=== PATIENT | male | born 1955 | race Caucasian/White ===

== ENCOUNTER 2016-12-08 09:15 | Day surgery (SDC) | payer OTHER ==
[~2016-12-08 09:15] MED LIST: ASPI-1159 PO; ATOR80TA PO; CANA300T PO; LIRA0.6P2 SUBCUT; LISI-604 PO; METF10002 PO; MUC103 MC; PIOG30TA10 PO
[2016-12-08] MEDS ORDERED: ASPIRIN/SOD BICARB/CITRIC ACID 324MG TAB EFF ONE (09:47)
[2016-12-08] MEDS ORDERED: CLOP75TA33 PO (09:55)
[2016-12-08] MEDS ORDERED: CHOL100046 PO (09:55)
[2016-12-08] MEDS ORDERED: MIDAZOLAM HCL 2 MG/2 ML VIAL ONE (10:54)
[2016-12-08] MEDS ORDERED: HEPARIN SODIUM 1,000 UNIT/1ML VIAL IV ONE (10:54)
[2016-12-08] MEDS ORDERED: IODIXANOL 320MG/ML 100 ML BOTTLE IV ONE (10:55)
[2016-12-08] MEDS ORDERED: LIDOCAINE HCL 1% 20ML VIAL (Pyxis) INJ ONE (10:55)
[2016-12-08] MEDS ORDERED: FENTANYL CITRATE/PF 50MCG/ML 2ML VIAL ONE (10:55)
[2016-12-08] MEDS ORDERED: ATROPINE SULFATE 1MG/10ML SYR IV PRN (12:15)
[2016-12-08] MEDS ORDERED: SODIUM CHLORIDE 0.45% 1,000 ML IV SCH (12:15)
[2016-12-08] MEDS ORDERED: ACETAMINOPHEN 325MG TABLET PO PRN (12:15)
[2016-12-08] MEDS ORDERED: MORPHINE SULFATE 2 MG/ML CPJ (NOT FOR IM USE) IV PRN (12:15)
[2016-12-08] MEDS ORDERED: ONDANSETRON HCL 4MG/2ML VIAL IV PRN (12:15)
[2016-12-08] MEDS ORDERED: NICARDIPINE 100MCG/ML 10ML VIAL (CATH LAB) IV ONE (13:06)
[2016-12-08] MEDS ORDERED: NITROGLYCERIN 50MCG/ML 10ML VIAL (CATH LAB) IV ONE (13:06)
== END 2016-12-08 15:30 | disposition home or self-care (01) ==
LOC: CCL 09:15
PROVIDERS: ATTEND Specialist
DX: I25.10 Atherosclerotic heart disease of native coronary artery without angina pectoris (principal); I11.9 Hypertensive heart disease without heart failure; E11.9 Type 2 diabetes mellitus without complications; E78.00 Pure hypercholesterolemia, unspecified; Z79.01 Long term (current) use of anticoagulants; Z79.82 Long term (current) use of aspirin; Z79.899 Other long term (current) drug therapy
CPT/HCPCS: 82962; 93458; 99152; 99153; C1769; C1887; C1893; J1644; J2250; J3010; J3490; Q9967